=== PATIENT | female | born 1930 | race Caucasian/White ===

== ENCOUNTER 2020-04-03 11:28 | Emergency (ER) | payer OTHER ==
[~2020-04-03] VITALS: Ht 167.6 cm; Wt 86.2 kg
[~2020-04-03 11:28] MED LIST: PLAVIX75 MG PO; SYNTHROID0.175 MG PO; VERELAN SR 240240 MG PO; WELLBUTRIN SR150 MG PO
[2020-04-03 12:36] LABS: BILIRUBIN 1+ (Negative); BLOOD 2+ (Negative); CLARITY Turbid (Clear); COLOR Red (Yellow); GLUCOSE Negative (Negative); KETONE Negative (Negative); LEUKO ESTERASE 2+ (Negative); NITRITE Positive (Negative)
[2020-04-03 12:41] LABS: RBC TNTC rbc/hpf (0-2)
[2020-04-03 12:44] LABS: BACTERIA 4+; WBC 41-50 wbc/hpf (0-5)
[2020-04-03 12:45] LABS: BASO % 0.5 % (0.0-1.0); EOS # 0.1 10*3/uL (0.0-0.4); EOS % 2.2 % (1.0-4.0); HEMATOCRIT 44.2 % (37.0-47.0); LYMPH # 0.8 10*3/uL (1.3-4.4); LYMPH % 20.1 % (27.0-41.0); MEAN CELL VOLUME 99.8 fl (81.0-99.0); MEAN CORPUSCULAR HGB 32.3 pg (27.0-31.0); MEAN CORPUSCULAR HGB CONC 32.4 g/dl (33.0-37.0); MEAN PLATELET VOLUME 10.2 fl (9.6-12.3); MONO # 0.4 10*3/uL (0.1-1.0); MONO % 10.7 % (3.0-9.0); NEUT # 2.7 10*3/uL (2.3-7.9); NEUT % 66.3 % (47.0-73.0); PLATELET COUNT AUTOMATED 141 10*3/uL (130-400); RED BLOOD COUNT 4.43 10*6/uL (4.10-5.10); WHITE BLOOD COUNT 4.1 10*3/uL (4.8-10.8)
[2020-04-03 12:56] LABS: ACT PARTIAL THROMBO TIME 39.4 SECONDS (20.0-32.1); INTERNATIONAL NORM RATIO 1.6 (2.0-3.5)
[2020-04-03 13:00] LABS: ALBUMIN 3.1 gm/dl (3.1-4.5); ALKALINE PHOSPHATASE 77 U/L (45-117); BUN 15 mg/dl (7-24); CHLORIDE 111 mmol/L (98-107); CREATININE 1.15 mg/dL (0.55-1.02); POTASSIUM 4.3 mmol/L (3.5-5.1); SGOT/AST 18 IU/L (3-35); SGPT/ALT 17 U/L (12-78); SODIUM 142 mmol/L (136-145); TOTAL PROTEIN 6.6 gm/dL (6.4-8.2)
[2020-04-03 13:02] LABS: TROPONIN I < 0.015 ng/ml (<0.045)
[2020-04-03] MEDS ORDERED: CIPRO500 MG PO (13:55)
== END 2020-04-03 14:15 | disposition home or self-care (01) ==
LOC: ED 11:28 → EDBD 11:31 → ED 11:31
PROVIDERS: Emergency Medicine
DX: N39.0 Urinary tract infection, site not specified (principal); R31.9 Hematuria, unspecified; Z79.899 Other long term (current) drug therapy

== ENCOUNTER 2021-01-21 17:30 | Inpatient (IN) | payer OTHER ==
[~2021-01-21] VITALS: Ht 165.1 cm; Wt 93.0 kg
[~2021-01-21 17:30] MED LIST changes: +CIPRO500 MG PO
[2021-01-21 18:17] VITALS: BP 102/58
[2021-01-21 19:07] LABS: BASO % 0.2 % (0.0-1.0); EOS % 0.1 % (1.0-4.0); LYMPH # 1.3 10*3/uL (1.3-4.4); LYMPH % 7.4 % (27.0-41.0); MEAN CELL VOLUME 100.7 fl (81.0-99.0); MEAN CORPUSCULAR HGB 31.9 pg (27.0-31.0); MEAN CORPUSCULAR HGB CONC 31.6 g/dl (33.0-37.0); MEAN PLATELET VOLUME 10.8 fl (9.6-12.3); MONO # 1.2 10*3/uL (0.1-1.0); MONO % 7.1 % (3.0-9.0); NEUT # 14.6 10*3/uL (2.3-7.9); NEUT % 83.6 % (47.0-73.0); NUCLEATED RED BLOOD CELL 0.1 % (0.0-0.0); PLATELET COUNT AUTOMATED 142 10*3/uL (130-400); RED BLOOD COUNT 4.27 10*6/uL (4.10-5.10); RED CELL DISTRI WIDTH 15.3 % (0-14.5); WHITE BLOOD COUNT 17.4 10*3/uL (4.8-10.8)
[2021-01-21 19:17] LABS: ALBUMIN 3.2 gm/dl (3.1-4.5); ALKALINE PHOSPHATASE 81 U/L (45-117); BUN 27 mg/dl (7-24); CHLORIDE 99 mmol/L (98-107); CREATININE 1.93 mg/dL (0.55-1.02); SGOT/AST 25 IU/L (3-35); SGPT/ALT 13 U/L (12-78); SODIUM 133 mmol/L (136-145); TOTAL PROTEIN 7.2 gm/dL (6.4-8.2)
[2021-01-21 19:22] LABS: TROPONIN I < 0.015 ng/ml (<0.045)
[2021-01-21 20:00] VITALS: BP 138/69
[2021-01-21 20:51] LABS: BILIRUBIN 2+ (Negative); BLOOD 3+ (Negative); CLARITY Turbid (Clear); COLOR Dark Yellow (Yellow); GLUCOSE Negative (Negative); KETONE Trace (Negative); LEUKO ESTERASE 3+ (Negative); NITRITE Negative (Negative)
[2021-01-21 21:30] LABS: BACTERIA 3+; EPITHELIAL CELLS TNTC; RBC TNTC rbc/hpf (0-2); WBC TNTC wbc/hpf (0-5)
[2021-01-21 23:25] VITALS: BP 129/60; BP 139/60
[2021-01-22] MEDS ORDERED: TORSEMIDE10 MG PO (00:01)
[2021-01-22] MEDS ORDERED: LEVOTHYROXINE137 MCG PO (00:02)
[2021-01-22] MEDS ORDERED: OMEPRAZOLE MAGN20 MG PO (00:03)
[2021-01-22] MEDS ORDERED: XARE20MG PO (00:05)
[2021-01-22 06:34] LABS: BASO % 0.1 % (0.0-1.0); EOS % 0.2 % (1.0-4.0); HEMATOCRIT 38.9 % (37.0-47.0); LYMPH # 0.6 10*3/uL (1.3-4.4); LYMPH % 4.9 % (27.0-41.0); MEAN CORPUSCULAR HGB 31.6 pg (27.0-31.0); MEAN CORPUSCULAR HGB CONC 31.9 g/dl (33.0-37.0); MEAN PLATELET VOLUME 11.7 fl (9.6-12.3); MONO % 7.9 % (3.0-9.0); PLATELET COUNT AUTOMATED 117 10*3/uL (130-400); RED BLOOD COUNT 3.93 10*6/uL (4.10-5.10); RED CELL DISTRI WIDTH 15.3 % (0-14.5); WHITE BLOOD COUNT 12.9 10*3/uL (4.8-10.8)
[2021-01-22 06:49] LABS: ALBUMIN 2.7 gm/dl (3.1-4.5); CREATININE 1.71 mg/dL (0.55-1.02); TOTAL PROTEIN 6.2 gm/dL (6.4-8.2)
[2021-01-22 06:59] LABS: FREE T4 1.03 ng/dl (0.76-1.46); THYROID STIM HORMONE (HS) 3.46 uIU/ml (0.358-4.75)
[2021-01-22 07:37] LABS: VITAMIN D, 25-HYDROXY 27.7 ng/mL (30-100)
[2021-01-22 08:00] VITALS: BP 118/70
[2021-01-22 12:00] VITALS: BP 109/54
[2021-01-22] MEDS ORDERED: VITAMIN B121000 MC1 PO (14:47)
[2021-01-22] MEDS ORDERED: FERROUS SULFAT325 MG PO (14:48)
[2021-01-22] MEDS ORDERED: IBUPROFEN600 MG PO (14:49)
[2021-01-22] MEDS ORDERED: MULTIPLE VITAM1 EAC1 PO (14:50)
[2021-01-22] MEDS ORDERED: POTASSIUM CHLO10 ME4 PO (14:51)
[2021-01-22] MEDS ORDERED: CRANBERRY URIN1 EACH PO (14:53)
[2021-01-22 16:00] VITALS: BP 118/55
[2021-01-22 20:00] VITALS: BP 116/55
[2021-01-23] VITALS: BP 108/57
[2021-01-23 06:31] LABS: ALBUMIN 2.3 gm/dl (3.1-4.5); CREATININE 1.44 mg/dL (0.55-1.02); POTASSIUM 3.6 mmol/L (3.5-5.1)
[2021-01-23 06:57] LABS: BASO % 0.3 % (0.0-1.0); EOS % 0.4 % (1.0-4.0); HEMATOCRIT 36.9 % (37.0-47.0); LYMPH # 0.9 10*3/uL (1.3-4.4); LYMPH % 8.7 % (27.0-41.0); MEAN CELL VOLUME 98.9 fl (81.0-99.0); MEAN CORPUSCULAR HGB 31.4 pg (27.0-31.0); MEAN CORPUSCULAR HGB CONC 31.7 g/dl (33.0-37.0); MEAN PLATELET VOLUME 11.4 fl (9.6-12.3); MONO # 1.1 10*3/uL (0.1-1.0); MONO % 10.5 % (3.0-9.0); NEUT # 7.9 10*3/uL (2.3-7.9); NEUT % 79.1 % (47.0-73.0); PLATELET COUNT AUTOMATED 127 10*3/uL (130-400); RED BLOOD COUNT 3.73 10*6/uL (4.10-5.10); RED CELL DISTRI WIDTH 15.4 % (0-14.5)
[2021-01-23 08:00] VITALS: BP 90/50
[2021-01-23 12:00] VITALS: BP 92/52
[2021-01-23 16:00] VITALS: BP 116/74
[2021-01-23 20:00] VITALS: BP 119/64
[2021-01-24] VITALS: BP 113/61
[2021-01-24 06:15] LABS: CREATININE 1.35 mg/dL (0.55-1.02); POTASSIUM 3.7 mmol/L (3.5-5.1)
[2021-01-24 06:29] LABS: BASO % 0.3 % (0.0-1.0); EOS # 0.1 10*3/uL (0.0-0.4); EOS % 1.9 % (1.0-4.0); HEMATOCRIT 36.1 % (37.0-47.0); LYMPH # 0.8 10*3/uL (1.3-4.4); LYMPH % 11.7 % (27.0-41.0); MEAN CELL VOLUME 98.6 fl (81.0-99.0); MEAN CORPUSCULAR HGB 31.4 pg (27.0-31.0); MEAN CORPUSCULAR HGB CONC 31.9 g/dl (33.0-37.0); MEAN PLATELET VOLUME 11.3 fl (9.6-12.3); MONO # 0.7 10*3/uL (0.1-1.0); MONO % 10.5 % (3.0-9.0); NEUT # 5.1 10*3/uL (2.3-7.9); PLATELET COUNT AUTOMATED 145 10*3/uL (130-400); RED BLOOD COUNT 3.66 10*6/uL (4.10-5.10); WHITE BLOOD COUNT 6.9 10*3/uL (4.8-10.8)
[2021-01-24 07:42] VITALS: BP 125/70
[2021-01-24 12:08] VITALS: BP 112/56
[2021-01-24] MEDS ORDERED: VITAMIN D350 MC2 PO (13:49)
[2021-01-24] MEDS ORDERED: XARE15TA PO (13:49)
[2021-01-24 16:00] VITALS: BP 125/70
[2021-01-24 20:00] VITALS: BP 138/69
[2021-01-25] VITALS: BP 128/47
[2021-01-25 07:52] VITALS: BP 139/68
[2021-01-25 12:11] VITALS: BP 111/66
== END 2021-01-25 14:24 | DRG 689 ==
LOC: ED 17:30 → EDBD 22:10 → EDHOLD 22:10 → 5E 22:10
PROVIDERS: Internal Medicine; Physician Assistant; Social Worker Clinical; ADMIT Internal Medicine; ATTEND Internal Medicine
DX: N30.01 Acute cystitis with hematuria (principal); G93.41 Metabolic encephalopathy; E43 Unspecified severe protein-calorie malnutrition; E87.1 Hypo-osmolality and hyponatremia; N17.9 Acute kidney failure, unspecified; J98.11 Atelectasis; N18.4 Chronic kidney disease, stage 4 (severe); N32.81 Overactive bladder; I48.91 Unspecified atrial fibrillation; Z20.822 Contact with and (suspected) exposure to COVID-19; E86.0 Dehydration; E03.9 Hypothyroidism, unspecified; E80.6 Other disorders of bilirubin metabolism; I25.10 Atherosclerotic heart disease of native coronary artery without angina pectoris; E83.41 Hypermagnesemia; B96.1 Klebsiella pneumoniae [K. pneumoniae] as the cause of diseases classified elsewhere; R73.9 Hyperglycemia, unspecified; E66.9 Obesity, unspecified; D64.9 Anemia, unspecified; Z86.73 Personal history of transient ischemic attack (TIA), and cerebral infarction without residual deficits; Z88.2 Allergy status to sulfonamides; Z88.8 Allergy status to other drugs, medicaments and biological substances; Z79.899 Other long term (current) drug therapy

== ENCOUNTER 2021-04-01 11:32 | Inpatient (IN) | payer OTHER ==
[~2021-04-01] VITALS: Ht 170.1 cm; Wt 63.6 kg
[~2021-04-01 11:32] MED LIST changes: +CRANBERRY URIN1 EACH PO; +FERROUS SULFAT325 MG PO; +IBUPROFEN600 MG PO; +LEVOTHYROXINE137 MCG PO; +MULTIPLE VITAM1 EAC1 PO; +OMEPRAZOLE MAGN20 MG PO; +POTASSIUM CHLO10 ME4 PO; +TORSEMIDE10 MG PO; +VITAMIN B121000 MC1 PO; +VITAMIN D350 MC2 PO; +XARE15TA PO; +XARE20MG PO
[2021-04-01 11:57] VITALS: BP 129/65
[2021-04-01 12:03] LABS: BASO % 0.4 % (0.0-1.0); EOS # 0.1 10*3/uL (0.0-0.4); EOS % 1.5 % (1.0-4.0); HEMATOCRIT 43.5 % (37.0-47.0); LYMPH # 0.9 10*3/uL (1.3-4.4); LYMPH % 18.8 % (27.0-41.0); MEAN CELL VOLUME 100.9 fl (81.0-99.0); MEAN CORPUSCULAR HGB CONC 31.7 g/dl (33.0-37.0); MEAN PLATELET VOLUME 10.7 fl (9.6-12.3); MONO # 0.4 10*3/uL (0.1-1.0); MONO % 9.1 % (3.0-9.0); NEUT # 3.1 10*3/uL (2.3-7.9); NEUT % 69.5 % (47.0-73.0); PLATELET COUNT AUTOMATED 143 10*3/uL (130-400); RED BLOOD COUNT 4.31 10*6/uL (4.10-5.10); RED CELL DISTRI WIDTH 15.2 % (0-14.5); WHITE BLOOD COUNT 4.5 10*3/uL (4.8-10.8)
[2021-04-01 12:15] LABS: ACT PARTIAL THROMBO TIME 41.2 SECONDS (20.0-32.1); INTERNATIONAL NORM RATIO 1.6 (2.0-3.5)
[2021-04-01 12:23] LABS: ALBUMIN 3.3 gm/dl (3.1-4.5); ALKALINE PHOSPHATASE 81 U/L (45-117); BUN 16 mg/dl (7-24); CHLORIDE 107 mmol/L (98-107); CREATININE 1.48 mg/dL (0.55-1.02); POTASSIUM 3.9 mmol/L (3.5-5.1); SGOT/AST 15 IU/L (3-35); SGPT/ALT 19 U/L (12-78); SODIUM 141 mmol/L (136-145)
[2021-04-01 12:24] LABS: TROPONIN I < 0.015 ng/ml (<0.045)
[2021-04-01 15:59] LABS: BILIRUBIN Negative (Negative); BLOOD 3+ (Negative); CLARITY Cloudy (Clear); COLOR Yellow (Yellow); GLUCOSE Negative (Negative); KETONE Negative (Negative); LEUKO ESTERASE Negative (Negative); NITRITE Negative (Negative); PH 5.5 (4.5-8.0); UROBILINOGEN 0.2 E.U./dl (0.0-1.0)
[2021-04-01 16:20] LABS: BACTERIA 1+; RBC TNTC rbc/hpf (0-2); WBC 16-20 wbc/hpf (0-5)
[2021-04-01] MEDS ORDERED: MIRTAZAPINE7.5 MG PO (20:20)
[2021-04-02 07:25] LABS: BASO % 0.9 % (0.0-1.0); EOS # 0.1 10*3/uL (0.0-0.4); EOS % 2.6 % (1.0-4.0); HEMATOCRIT 38.8 % (37.0-47.0); LYMPH # 0.8 10*3/uL (1.3-4.4); LYMPH % 23.6 % (27.0-41.0); MEAN CELL VOLUME 102.4 fl (81.0-99.0); MEAN CORPUSCULAR HGB 31.7 pg (27.0-31.0); MEAN CORPUSCULAR HGB CONC 30.9 g/dl (33.0-37.0); MONO # 0.4 10*3/uL (0.1-1.0); MONO % 11.6 % (3.0-9.0); NEUT # 2.1 10*3/uL (2.3-7.9); NEUT % 60.4 % (47.0-73.0); PLATELET COUNT AUTOMATED 132 10*3/uL (130-400); RED BLOOD COUNT 3.79 10*6/uL (4.10-5.10); RED CELL DISTRI WIDTH 15.4 % (0-14.5); WHITE BLOOD COUNT 3.5 10*3/uL (4.8-10.8)
[2021-04-02 07:36] LABS: ALBUMIN 2.7 gm/dl (3.1-4.5); POTASSIUM 3.6 mmol/L (3.5-5.1)
[2021-04-02 07:41] LABS: CREATININE 1.17 mg/dL (0.55-1.02); TOTAL PROTEIN 5.9 gm/dL (6.4-8.2)
[2021-04-02 08:00] VITALS: BP 132/71
[2021-04-02 12:00] VITALS: BP 118/74
[2021-04-02 16:00] VITALS: BP 122/74
[2021-04-02 18:00] VITALS: BP 136/75
[2021-04-02 20:00] VITALS: BP 138/74
[2021-04-03] VITALS: BP 141/74
[2021-04-03] MEDS ORDERED: VERAPAMIL SR240 M1 PO (00:48)
[2021-04-03] MEDS ORDERED: LEVOTHYROXINE150 MCG PO (00:48)
[2021-04-03 07:04] LABS: BASO % 0.4 % (0.0-1.0); EOS # 0.1 10*3/uL (0.0-0.4); EOS % 2.3 % (1.0-4.0); HEMATOCRIT 43.5 % (37.0-47.0); LYMPH # 0.7 10*3/uL (1.3-4.4); LYMPH % 15.3 % (27.0-41.0); MEAN CELL VOLUME 102.4 fl (81.0-99.0); MEAN CORPUSCULAR HGB 31.8 pg (27.0-31.0); MEAN PLATELET VOLUME 10.5 fl (9.6-12.3); MONO # 0.4 10*3/uL (0.1-1.0); MONO % 8.2 % (3.0-9.0); NEUT # 3.5 10*3/uL (2.3-7.9); NEUT % 73.2 % (47.0-73.0); PLATELET COUNT AUTOMATED 149 10*3/uL (130-400); RED BLOOD COUNT 4.25 10*6/uL (4.10-5.10); RED CELL DISTRI WIDTH 15.3 % (0-14.5); WHITE BLOOD COUNT 4.8 10*3/uL (4.8-10.8)
[2021-04-03 07:44] LABS: CREATININE 1.12 mg/dL (0.55-1.02)
[2021-04-03 08:00] VITALS: BP 100/67
[2021-04-03 12:00] VITALS: BP 122/70
[2021-04-03 16:00] VITALS: BP 135/52
[2021-04-03 20:00] VITALS: BP 116/48
[2021-04-04] VITALS: BP 145/97
[2021-04-04 08:00] VITALS: BP 153/84
[2021-04-04 12:00] VITALS: BP 148/78
== END 2021-04-04 14:24 | disposition home health service (06) | DRG 689 ==
LOC: ED 11:32 → 4E 15:51 → EDHOLD 15:51 → 4E 04-02 18:06
PROVIDERS: Emergency Medicine; Internal Medicine; ADMIT Student in an Organized Health Care Education/Training Program; ATTEND Student in an Organized Health Care Education/Training Program
DX: N30.01 Acute cystitis with hematuria (principal); G93.41 Metabolic encephalopathy; N17.0 Acute kidney failure with tubular necrosis; E43 Unspecified severe protein-calorie malnutrition; N18.4 Chronic kidney disease, stage 4 (severe); E86.0 Dehydration; E83.41 Hypermagnesemia; Z66 Do not resuscitate; I25.10 Atherosclerotic heart disease of native coronary artery without angina pectoris; I48.91 Unspecified atrial fibrillation; E03.9 Hypothyroidism, unspecified; Z20.822 Contact with and (suspected) exposure to COVID-19; N32.81 Overactive bladder; N28.1 Cyst of kidney, acquired; Z51.5 Encounter for palliative care; Z90.49 Acquired absence of other specified parts of digestive tract; Z88.2 Allergy status to sulfonamides; Z88.8 Allergy status to other drugs, medicaments and biological substances; Z79.899 Other long term (current) drug therapy; Z68.21 Body mass index [BMI] 21.0-21.9, adult

== ENCOUNTER 2021-06-03 13:34 | Inpatient (IN) | payer OTHER ==
[~2021-06-03] VITALS: Ht 170.1 cm; Wt 89.6 kg
[~2021-06-03 13:34] MED LIST changes: +LEVOTHYROXINE150 MCG PO; +MIRTAZAPINE7.5 MG PO; +VERAPAMIL SR240 M1 PO
[2021-06-03 13:46] VITALS: BP 115/61
[2021-06-03 13:54] LABS: BILIRUBIN Negative (Negative); BLOOD Negative (Negative); CLARITY Clear (Clear); COLOR Yellow (Yellow); GLUCOSE Negative (Negative); KETONE Negative (Negative); LEUKO ESTERASE Negative (Negative); NITRITE Negative (Negative); PH 6.5 (4.5-8.0); SPECIFIC GRAVITY 1.025 (1.001-1.030); UROBILINOGEN 0.2 E.U./dl (0.0-1.0)
[2021-06-03 14:19] LABS: BACTERIA 4+; YEAST 1+
[2021-06-03 14:35] LABS: BASO % 0.5 % (0.0-1.0); EOS # 0.1 10*3/uL (0.0-0.4); HEMATOCRIT 42.5 % (37.0-47.0); LYMPH # 0.7 10*3/uL (1.3-4.4); LYMPH % 17.2 % (27.0-41.0); MEAN CELL VOLUME 101.2 fl (81.0-99.0); MEAN CORPUSCULAR HGB 31.9 pg (27.0-31.0); MEAN CORPUSCULAR HGB CONC 31.5 g/dl (33.0-37.0); MONO # 0.5 10*3/uL (0.1-1.0); MONO % 13.7 % (3.0-9.0); NEUT # 2.6 10*3/uL (2.3-7.9); NEUT % 64.6 % (47.0-73.0); PLATELET COUNT AUTOMATED 145 10*3/uL (130-400)
[2021-06-03 14:40] VITALS: BP 104/49
[2021-06-03 14:54] LABS: ALBUMIN 2.8 gm/dl (3.1-4.5); CREATININE 1.29 mg/dL (0.55-1.02); POTASSIUM 3.8 mmol/L (3.5-5.1); TOTAL PROTEIN 6.7 gm/dL (6.4-8.2)
[2021-06-03 14:56] LABS: ACT PARTIAL THROMBO TIME 45.8 SECONDS (20.0-32.1); INTERNATIONAL NORM RATIO 1.6 (2.0-3.5)
[2021-06-03] MEDS ORDERED: LEXAPRO10 MG PO (15:56)
[2021-06-03] MEDS ORDERED: TORSEMIDE5 MG PO (15:59)
[2021-06-03 16:30] VITALS: BP 123/57
[2021-06-03 19:44] VITALS: BP 121/66
[2021-06-03 20:09] VITALS: BP 115/55
[2021-06-03 21:45] VITALS: BP 116/65
[2021-06-04] MEDS ORDERED: XARE20MG PO (01:09)
[2021-06-04 06:30] LABS: BASO % 0.3 % (0.0-1.0); EOS % 0.3 % (1.0-4.0); LYMPH # 0.5 10*3/uL (1.3-4.4); LYMPH % 17.1 % (27.0-41.0); MEAN CELL VOLUME 100.5 fl (81.0-99.0); MEAN CORPUSCULAR HGB 31.3 pg (27.0-31.0); MEAN CORPUSCULAR HGB CONC 31.1 g/dl (33.0-37.0); MEAN PLATELET VOLUME 10.9 fl (9.6-12.3); MONO # 0.1 10*3/uL (0.1-1.0); MONO % 3.5 % (3.0-9.0); NEUT # 2.4 10*3/uL (2.3-7.9); NEUT % 77.5 % (47.0-73.0); PLATELET COUNT AUTOMATED 151 10*3/uL (130-400); RED BLOOD COUNT 4.38 10*6/uL (4.10-5.10); RED CELL DISTRI WIDTH 14.9 % (0-14.5); WHITE BLOOD COUNT 3.2 10*3/uL (4.8-10.8)
[2021-06-04 06:47] LABS: CREATININE 1.17 mg/dL (0.55-1.02); POTASSIUM 4.2 mmol/L (3.5-5.1)
[2021-06-04 08:00] VITALS: BP 124/70
[2021-06-04 12:00] VITALS: BP 106/72
[2021-06-04 16:00] VITALS: BP 120/67
[2021-06-04 20:00] VITALS: BP 114/54
[2021-06-05] VITALS: BP 109/63
[2021-06-05 06:54] LABS: BASO % 0.2 % (0.0-1.0); HEMATOCRIT 41.8 % (37.0-47.0); LYMPH # 0.6 10*3/uL (1.3-4.4); LYMPH % 11.6 % (27.0-41.0); MEAN CORPUSCULAR HGB 31.5 pg (27.0-31.0); MEAN CORPUSCULAR HGB CONC 30.9 g/dl (33.0-37.0); MONO # 0.5 10*3/uL (0.1-1.0); MONO % 9.9 % (3.0-9.0); NEUT % 77.7 % (47.0-73.0); PLATELET COUNT AUTOMATED 155 10*3/uL (130-400); RED CELL DISTRI WIDTH 14.7 % (0-14.5); WHITE BLOOD COUNT 5.2 10*3/uL (4.8-10.8)
[2021-06-05 07:14] LABS: ALBUMIN 2.5 gm/dl (3.1-4.5); CREATININE 1.24 mg/dL (0.55-1.02); TOTAL PROTEIN 6.2 gm/dL (6.4-8.2)
[2021-06-05 08:00] VITALS: BP 92/54
[2021-06-05 12:00] VITALS: BP 116/58
[2021-06-05 16:00] VITALS: BP 121/60
[2021-06-05 20:00] VITALS: BP 103/52
[2021-06-06] VITALS: BP 108/71
[2021-06-06 06:40] LABS: BASO % 0.1 % (0.0-1.0); HEMATOCRIT 42.3 % (37.0-47.0); LYMPH # 0.8 10*3/uL (1.3-4.4); LYMPH % 11.3 % (27.0-41.0); MEAN CELL VOLUME 101.7 fl (81.0-99.0); MEAN CORPUSCULAR HGB 31.7 pg (27.0-31.0); MEAN CORPUSCULAR HGB CONC 31.2 g/dl (33.0-37.0); MEAN PLATELET VOLUME 10.7 fl (9.6-12.3); MONO # 0.5 10*3/uL (0.1-1.0); MONO % 7.3 % (3.0-9.0); NEUT # 5.6 10*3/uL (2.3-7.9); NEUT % 80.6 % (47.0-73.0); PLATELET COUNT AUTOMATED 168 10*3/uL (130-400); RED BLOOD COUNT 4.16 10*6/uL (4.10-5.10); RED CELL DISTRI WIDTH 15.2 % (0-14.5)
[2021-06-06 07:00] LABS: ALBUMIN 2.6 gm/dl (3.1-4.5); CREATININE 1.26 mg/dL (0.55-1.02); POTASSIUM 3.9 mmol/L (3.5-5.1); TOTAL PROTEIN 6.2 gm/dL (6.4-8.2)
[2021-06-06 08:00] VITALS: BP 122/75
[2021-06-06 12:00] VITALS: BP 108/55
[2021-06-06] MEDS ORDERED: LISINOPRIL5 MG PO (13:00)
[2021-06-06] MEDS ORDERED: LASIX40 MG PO (13:00)
[2021-06-06] MEDS ORDERED: METOPROLOL SUCC25 M2 PO (13:00)
[2021-06-06] MEDS ORDERED: DECADRON6 M1 PO (13:02)
[2021-06-06 15:51] VITALS: BP 110/53
== END 2021-06-06 16:00 | DRG 177 ==
LOC: ED 13:34 → 4E 17:38 → EDHOLD 17:38 → 4E 20:22
PROVIDERS: Emergency Medicine; Student in an Organized Health Care Education/Training Program; ADMIT Family Medicine; ATTEND Family Medicine
PROC: XW033E5 Introduction of Remdesivir Anti-infective into Peripheral Vein, Percutaneous Approach, New Technology Group 5 (ICD-10-PCS; principal; 2021-06-03)
DX: U07.1 COVID-19 (principal); J12.82 Pneumonia due to coronavirus disease 2019; G93.41 Metabolic encephalopathy; J96.01 Acute respiratory failure with hypoxia; N17.0 Acute kidney failure with tubular necrosis; E44.0 Moderate protein-calorie malnutrition; N18.4 Chronic kidney disease, stage 4 (severe); I48.20 Chronic atrial fibrillation, unspecified; N39.0 Urinary tract infection, site not specified; E66.9 Obesity, unspecified; E87.8 Other disorders of electrolyte and fluid balance, not elsewhere classified; I50.9 Heart failure, unspecified; E83.41 Hypermagnesemia; E03.9 Hypothyroidism, unspecified; I25.10 Atherosclerotic heart disease of native coronary artery without angina pectoris; Z90.49 Acquired absence of other specified parts of digestive tract; Z88.2 Allergy status to sulfonamides; Z88.8 Allergy status to other drugs, medicaments and biological substances; Z79.899 Other long term (current) drug therapy; Z68.30 Body mass index [BMI] 30.0-30.9, adult

== ENCOUNTER 2021-08-01 15:02 | Inpatient (IN) | payer OTHER ==
[~2021-08-01] VITALS: Ht 170.1 cm; Wt 87.3 kg
[~2021-08-01 15:02] MED LIST changes: +DECADRON6 M1 PO; +LASIX40 MG PO; +LEXAPRO10 MG PO; +LISINOPRIL5 MG PO; +METOPROLOL SUCC25 M2 PO; +TORSEMIDE5 MG PO
[2021-08-01 15:03] VITALS: BP 117/54
[2021-08-01 15:43] LABS: BASO % 0.3 % (0.0-1.0); EOS % 0.5 % (1.0-4.0); HEMATOCRIT 43.9 % (37.0-47.0); LYMPH # 0.7 10*3/uL (1.3-4.4); LYMPH % 11.5 % (27.0-41.0); MEAN CELL VOLUME 97.3 fl (81.0-99.0); MEAN CORPUSCULAR HGB 31.5 pg (27.0-31.0); MEAN CORPUSCULAR HGB CONC 32.3 g/dl (33.0-37.0); MEAN PLATELET VOLUME 10.5 fl (9.6-12.3); MONO # 0.4 10*3/uL (0.1-1.0); MONO % 6.2 % (3.0-9.0); NEUT # 5.1 10*3/uL (2.3-7.9); PLATELET COUNT AUTOMATED 141 10*3/uL (130-400); RED BLOOD COUNT 4.51 10*6/uL (4.10-5.10); RED CELL DISTRI WIDTH 15.3 % (0-14.5); WHITE BLOOD COUNT 6.3 10*3/uL (4.8-10.8)
[2021-08-01 15:57] LABS: ACT PARTIAL THROMBO TIME 30.1 SECONDS (20.0-32.1); INTERNATIONAL NORM RATIO 1.2 (2.0-3.5)
[2021-08-01 16:02] LABS: ALBUMIN 2.7 gm/dl (3.1-4.5); CREATININE 1.1 mg/dL (0.55-1.02); TOTAL PROTEIN 6.3 gm/dL (6.4-8.2)
[2021-08-01 16:03] LABS: BILIRUBIN Negative (Negative); BLOOD Trace-Lysed (Negative); CLARITY Cloudy (Clear); COLOR Yellow (Yellow); GLUCOSE Negative (Negative); KETONE Negative (Negative); LEUKO ESTERASE 2+ (Negative); NITRITE Positive (Negative); SPECIFIC GRAVITY 1.015 (1.001-1.030)
[2021-08-01 16:22] LABS: BACTERIA 4+; WBC 51-100 wbc/hpf (0-5)
[2021-08-01 17:10] VITALS: BP 120/60
[2021-08-01] MEDS ORDERED: TORSEMIDE10 MG PO (18:57)
[2021-08-01] MEDS ORDERED: POTASSIUM CHLO10 MEQ PO (18:57)
[2021-08-01] MEDS ORDERED: VERELAN240 MG PO (18:58)
[2021-08-01] MEDS ORDERED: ATIVAN0.5 MG PO (19:04)
[2021-08-01] MEDS ORDERED: TORSEMIDE5 MG PO (19:05)
[2021-08-01 19:22] VITALS: BP 120/58
[2021-08-01] MEDS ORDERED: ATIVAN1 MG PO (20:38)
[2021-08-01 21:10] VITALS: BP 102/43
[2021-08-02] VITALS: BP 134/61
[2021-08-02 06:32] LABS: BASO % 0.7 % (0.0-1.0); EOS # 0.2 10*3/uL (0.0-0.4); EOS % 4.7 % (1.0-4.0); HEMATOCRIT 42.6 % (37.0-47.0); LYMPH # 0.9 10*3/uL (1.3-4.4); LYMPH % 22.9 % (27.0-41.0); MEAN CORPUSCULAR HGB 32.5 pg (27.0-31.0); MEAN CORPUSCULAR HGB CONC 31.9 g/dl (33.0-37.0); MEAN PLATELET VOLUME 10.3 fl (9.6-12.3); MONO # 0.4 10*3/uL (0.1-1.0); MONO % 9.9 % (3.0-9.0); NEUT # 2.5 10*3/uL (2.3-7.9); NEUT % 61.1 % (47.0-73.0); PLATELET COUNT AUTOMATED 144 10*3/uL (130-400); RED BLOOD COUNT 4.19 10*6/uL (4.10-5.10); RED CELL DISTRI WIDTH 15.6 % (0-14.5); WHITE BLOOD COUNT 4.1 10*3/uL (4.8-10.8)
[2021-08-02 06:48] LABS: ALBUMIN 2.5 gm/dl (3.1-4.5); CREATININE 1.08 mg/dL (0.55-1.02); FREE T4 1.18 ng/dl (0.76-1.46); TOTAL PROTEIN 5.9 gm/dL (6.4-8.2)
[2021-08-02 06:58] LABS: MEAN CELL VOLUME 101.7 fl (81.0-99.0)
[2021-08-02 07:34] LABS: THYROID STIM HORMONE (HS) 0.279 uIU/ml (0.358-4.75)
[2021-08-02 08:00] VITALS: BP 119/57
[2021-08-02 12:00] VITALS: BP 90/44
[2021-08-02 16:00] VITALS: BP 90/49
[2021-08-02 20:00] VITALS: BP 119/42
[2021-08-03] VITALS: BP 97/45
[2021-08-03 06:50] LABS: BASO % 0.3 % (0.0-1.0); EOS # 0.2 10*3/uL (0.0-0.4); EOS % 5.2 % (1.0-4.0); LYMPH # 0.9 10*3/uL (1.3-4.4); LYMPH % 23.7 % (27.0-41.0); MEAN CELL VOLUME 99.7 fl (81.0-99.0); MEAN CORPUSCULAR HGB CONC 32.1 g/dl (33.0-37.0); MEAN PLATELET VOLUME 10.8 fl (9.6-12.3); MONO # 0.4 10*3/uL (0.1-1.0); MONO % 10.4 % (3.0-9.0); NEUT # 2.2 10*3/uL (2.3-7.9); NEUT % 59.9 % (47.0-73.0); PLATELET COUNT AUTOMATED 128 10*3/uL (130-400); RED BLOOD COUNT 3.81 10*6/uL (4.10-5.10); RED CELL DISTRI WIDTH 15.2 % (0-14.5); WHITE BLOOD COUNT 3.7 10*3/uL (4.8-10.8)
[2021-08-03 07:08] LABS: CREATININE 1.1 mg/dL (0.55-1.02); POTASSIUM 3.9 mmol/L (3.5-5.1)
[2021-08-03 08:00] VITALS: BP 115/50
[2021-08-03 12:00] VITALS: BP 103/51
[2021-08-03 16:00] VITALS: BP 114/43
[2021-08-03 20:00] VITALS: BP 125/71
[2021-08-04] VITALS: BP 120/89
[2021-08-04 06:16] LABS: EOS # 0.2 10*3/uL (0.0-0.4); EOS % 6.7 % (1.0-4.0); HEMATOCRIT 39.3 % (37.0-47.0); LYMPH # 0.9 10*3/uL (1.3-4.4); LYMPH % 29.5 % (27.0-41.0); MEAN CORPUSCULAR HGB 32.4 pg (27.0-31.0); MEAN CORPUSCULAR HGB CONC 33.1 g/dl (33.0-37.0); MEAN PLATELET VOLUME 10.1 fl (9.6-12.3); MONO # 0.4 10*3/uL (0.1-1.0); MONO % 11.4 % (3.0-9.0); NEUT # 1.6 10*3/uL (2.3-7.9); NEUT % 50.1 % (47.0-73.0); PLATELET COUNT AUTOMATED 126 10*3/uL (130-400); RED BLOOD COUNT 4.01 10*6/uL (4.10-5.10); RED CELL DISTRI WIDTH 15.1 % (0-14.5); WHITE BLOOD COUNT 3.2 10*3/uL (4.8-10.8)
[2021-08-04 08:00] VITALS: BP 127/60
[2021-08-04 12:00] VITALS: BP 129/69
[2021-08-04 16:00] VITALS: BP 111/56
[2021-08-04 20:00] VITALS: BP 129/69
[2021-08-05] VITALS: BP 126/81
[2021-08-05 08:00] VITALS: BP 122/78
[2021-08-05 12:00] VITALS: BP 129/84
[2021-08-05 16:00] VITALS: BP 115/72
[2021-08-05 20:00] VITALS: BP 136/90
[2021-08-06] VITALS: BP 129/79
[2021-08-06 08:00] VITALS: BP 132/80
[2021-08-06 12:10] VITALS: BP 144/82
[2021-08-06 16:00] VITALS: BP 134/62
[2021-08-06 20:10] VITALS: BP 133/67
[2021-08-07] VITALS: BP 134/66
[2021-08-07 08:00] VITALS: BP 125/69
[2021-08-07 12:00] VITALS: BP 126/56
[2021-08-07] MEDS ORDERED: LEVOFLOXACIN750 M2 PO (13:15)
[2021-08-07] MEDS ORDERED: XARE15TA PO (13:15)
== END 2021-08-07 16:18 | DRG 193 ==
LOC: ED 15:02 → EDHOLD 18:50 → 5E 18:50
PROVIDERS: Hospitalist; Internal Medicine; Physician Assistant; ADMIT Student in an Organized Health Care Education/Training Program; ATTEND Student in an Organized Health Care Education/Training Program
DX: J18.9 Pneumonia, unspecified organism (principal); G93.41 Metabolic encephalopathy; E44.0 Moderate protein-calorie malnutrition; N30.00 Acute cystitis without hematuria; N18.4 Chronic kidney disease, stage 4 (severe); I48.92 Unspecified atrial flutter; I50.20 Unspecified systolic (congestive) heart failure; I13.0 Hypertensive heart and chronic kidney disease with heart failure and stage 1 through stage 4 chronic kidney disease, or unspecified chronic kidney disease; J44.0 Chronic obstructive pulmonary disease with (acute) lower respiratory infection; Z16.12 Extended spectrum beta lactamase (ESBL) resistance; Z20.822 Contact with and (suspected) exposure to COVID-19; K52.9 Noninfective gastroenteritis and colitis, unspecified; N32.81 Overactive bladder; Z66 Do not resuscitate; Z51.5 Encounter for palliative care; E87.8 Other disorders of electrolyte and fluid balance, not elsewhere classified; R73.9 Hyperglycemia, unspecified; E03.9 Hypothyroidism, unspecified; I25.10 Atherosclerotic heart disease of native coronary artery without angina pectoris; F03.90 Unspecified dementia, unspecified severity, without behavioral disturbance, psychotic disturbance, mood disturbance, and anxiety; B96.1 Klebsiella pneumoniae [K. pneumoniae] as the cause of diseases classified elsewhere; K57.90 Diverticulosis of intestine, part unspecified, without perforation or abscess without bleeding; Z90.49 Acquired absence of other specified parts of digestive tract; Z88.2 Allergy status to sulfonamides; Z86.73 Personal history of transient ischemic attack (TIA), and cerebral infarction without residual deficits; Z88.8 Allergy status to other drugs, medicaments and biological substances; Z68.30 Body mass index [BMI] 30.0-30.9, adult; Z86.16 Personal history of COVID-19

== ENCOUNTER 2021-09-14 02:56 | Emergency (ER) | payer OTHER ==
[~2021-09-14 02:56] MED LIST changes: +ATIVAN0.5 MG PO; +ATIVAN1 MG PO; +LEVOFLOXACIN750 M2 PO; +POTASSIUM CHLO10 MEQ PO; +VERELAN240 MG PO
== END 2021-09-14 05:13 ==
LOC: ED 02:56
DX: F03.90 Unspecified dementia, unspecified severity, without behavioral disturbance, psychotic disturbance, mood disturbance, and anxiety (principal); Z88.2 Allergy status to sulfonamides; Z79.899 Other long term (current) drug therapy; Z90.49 Acquired absence of other specified parts of digestive tract; W18.39XA Other fall on same level, initial encounter; Y93.89 Activity, other specified; Y92.89 Other specified places as the place of occurrence of the external cause; Y99.8 Other external cause status

== ENCOUNTER 2021-10-08 16:09 | Emergency (ER) | payer OTHER ==
[~2021-10-08] VITALS: Wt 90.7 kg
[2021-10-08] MEDS ORDERED: ARICEPT5 M1 PO (16:21)
[2021-10-08] MEDS ORDERED: ATIVAN0.5 MG PO (16:22)
[2021-10-08] MEDS ORDERED: CRANBERRY200 MG PO (16:22)
[2021-10-08] MEDS ORDERED: GUAIFENESI100 MG/56 PO (16:24)
[2021-10-08] MEDS ORDERED: Ipratropium Brom3 ML INH (16:24)
[2021-10-08] MEDS ORDERED: LASIX20 MG PO ×2 (16:25)
[2021-10-08] MEDS ORDERED: LEVOTHYROXINE150 MC1 PO (16:26)
[2021-10-08] MEDS ORDERED: ASPERFLEX1 EACH T (16:27)
[2021-10-08] MEDS ORDERED: OMEPRAZOLE10 MG PO (16:28)
[2021-10-08] MEDS ORDERED: MILK OF MA400 MG/5 M PO (16:28)
[2021-10-08] MEDS ORDERED: KLOR-CON M1010 ME1 PO (16:29)
[2021-10-08] MEDS ORDERED: TYLENOL PM EX-1 EACH PO (16:29)
[2021-10-08] MEDS ORDERED: VERAPAMIL HCL240 MG PO (16:30)
[2021-10-08] MEDS ORDERED: XARE15TA PO ×2 (16:30→16:31)
[2021-10-08 17:00] LABS: BILIRUBIN Negative (Negative); BLOOD 1+ (Negative); CLARITY Cloudy (Clear); COLOR Dark Yellow (Yellow); GLUCOSE Negative (Negative); KETONE Negative (Negative); LEUKO ESTERASE 1+ (Negative); NITRITE Negative (Negative); PH 5.5 (4.5-8.0)
[2021-10-08 17:16] LABS: BASO % 0.5 % (0.0-1.0); EOS % 0.3 % (1.0-4.0); HEMATOCRIT 38.3 % (37.0-47.0); LYMPH # 0.7 10*3/uL (1.3-4.4); LYMPH % 12.4 % (27.0-41.0); MEAN CORPUSCULAR HGB 29.8 pg (27.0-31.0); MEAN CORPUSCULAR HGB CONC 31.1 g/dl (33.0-37.0); MEAN PLATELET VOLUME 10.3 fl (9.6-12.3); MONO # 0.6 10*3/uL (0.1-1.0); MONO % 9.9 % (3.0-9.0); NEUT # 4.5 10*3/uL (2.3-7.9); NEUT % 75.9 % (47.0-73.0); PLATELET COUNT AUTOMATED 196 10*3/uL (130-400); RED BLOOD COUNT 3.99 10*6/uL (4.10-5.10); RED CELL DISTRI WIDTH 14.1 % (0-14.5); WHITE BLOOD COUNT 5.9 10*3/uL (4.8-10.8)
[2021-10-08 17:17] LABS: BACTERIA 4+; MUCOUS 2+; WBC 21-30 wbc/hpf (0-5)
[2021-10-08 17:31] LABS: CREATININE 1.07 mg/dL (0.55-1.02); TOTAL PROTEIN 6.3 gm/dL (6.4-8.2)
== END 2021-10-08 22:27 ==
LOC: ED 16:09
PROVIDERS: Family Medicine
DX: I21.4 Non-ST elevation (NSTEMI) myocardial infarction (principal)